=== PATIENT | male | born 1950 | race Caucasian/White ===

== ENCOUNTER 2022-04-20 17:04 | Emergency (ER) | payer MEDICARE, OTHER ==
[2022-04-20 17:30] VITALS: BP 138/72
[2022-04-20] MEDS ORDERED: LIDOCAINE 1%-EPI 1:100000 20 ML MDV SUBQ STA (18:20)
--- NOTE | 2022-04-20 18:21 | ED Physician Documentation ---
PD HPI HEAD INJURY - Stated complaint Stated Complaint: FOREHEAD LAC - Chief complaint Chief Complaint: Laceration - History obtained from History obtained from: Patient, Family - Additional information Additional information: He was walking down the stairs carrying a chair and slipped and fell. This was around 415 today. He hit his head on the concrete and has a laceration on the right forehead above the eye. There is no loss of consciousness. No headache. No other injuries. Last tetanus was 6 years ago. Review of Systems Constitutional: reports: Reviewed and negative Eyes: reports: Reviewed and negative Ears: reports: Reviewed and negative PD PAST MEDICAL HISTORY - Past Medical History Cardiovascular: High cholesterol Endocrine/Autoimmune: Type 2 diabetes Psych: Depression - Past Surgical History Past Surgical History: Yes - Present Medications Home Medications: Ambulatory Orders Medication Instructions Recorded Confirmed Adalimumab [Humira] 40 mg SUBQ 03/25/14 03/25/14 Fluoxetine HCl 40 mg PO DAILY 03/25/14 03/25/14 Simvastatin 10 mg PO DAILY 03/25/14 03/25/14 metFORMIN [Glucophage] 500 mg PO BID 03/25/14 03/25/14 Adalimumab [Humira] 09/05/15 09/05/15 - Allergies Allergies/Adverse Reactions: Allergies Allergy/AdvReac Type Severity Reaction Status Date / Time No Known Drug Allergies Allergy Verified 04/20/22 17:30 - Social History Does the pt smoke?: No Smoking Status: Never smoker Does the pt drink ETOH?: No Does the pt have substance abuse?: No - Immunizations Immunizations are current?: Yes PD ED PE NORMAL - Vitals Vital signs reviewed: Yes - General General: Alert and oriented X 3, No acute distress - HEENT HEENT: PERRL, Other (There is a 3 cm curved laceration above and into the medial right eyebrow. No facial bony tenderness. No evidence of entrapment.) - Neck Neck: Supple, no meningeal sign, No bony TTP - Neuro Neuro: Alert and oriented X 3, equipment superintendent 2-12 intact, No motor deficit, No sensory deficit, Normal speech Eye Opening: Spontaneous Motor: Obeys Commands Verbal: Oriented GCS Score: 15 Results - Vitals Vitals: Vital Signs - 24 hr 04/20/22 17:21 Temperature 36.4 C L Heart Rate 87 Respiratory 16 Rate Blood Pressure 138/72 H O2 Saturation 98 Oxygen O2 Source Room air Procedures - Laceration (location) Right forehead Length in cm: 3 Wound type: Curved, Superficial, Into subcut fat Neurovascular status: Sensory intact Anesthesia: Lidocaine 1% with epi Wound preparation: Irrigated copiously NS Skin layer closure: Prolene, Interrupted, Size #-0 - enter number (6-1), Sutures - enter # (9) Other: Tetanus UTD Departure - Departure Disposition: 01 Home, Self Care Clinical Impression: Laceration Condition: Good Record reviewed to determine appropriate education?: Yes Instructions: ED Laceration Facial Sutr Tape Comments: Come back for any signs of infection which would include: Redness, swelling, drainage, increased pain, or fevers. You can wash it soap and water. Keep it covered and moist with bacitracin ointment which is available over the counter; avoid neosporin. Follow-up with your physician in 6-7 days for suture removal.
== END 2022-04-20 18:50 | disposition home or self-care (01) ==
LOC: ED 17:04
DX: S01.81XA Laceration without foreign body of other part of head, initial encounter (principal); W10.9XXA Fall (on) (from) unspecified stairs and steps, initial encounter; E11.9 Type 2 diabetes mellitus without complications; Z79.84 Long term (current) use of oral hypoglycemic drugs
CPT/HCPCS: 12013; 99283

== ENCOUNTER 2022-04-30 14:01 | Emergency (ER) | payer MEDICARE, OTHER ==
[2022-04-30 14:15] VITALS: BP 138/73
--- NOTE | 2022-04-30 14:17 | ED Physician Documentation ---
PD HPI WOUND RECHECK - Stated complaint Stated Complaint: SUTURE REMOVAL - Chief complaint Chief Complaint: Laceration - Histroy obtained from History obtained from: Patient - History of Present Illness Location: Face (right forehead above eyebrow.) Timing - onset: How many days ago (10) Associated symptoms: No: Redness, Swelling, Drainage Recently seen: Emergency Dept (10 days ago.) Review of Systems Neurologic: denies: Focal weakness, Numbness, Altered mental status, Headache PD PAST MEDICAL HISTORY - Past Medical History Cardiovascular: High cholesterol Endocrine/Autoimmune: Type 2 diabetes Psych: Depression - Past Surgical History Past Surgical History: Yes - Present Medications Home Medications: Ambulatory Orders Medication Instructions Recorded Confirmed Adalimumab [Humira] 40 mg SUBQ 03/25/14 03/25/14 Fluoxetine HCl 40 mg PO DAILY 03/25/14 03/25/14 Simvastatin 10 mg PO DAILY 03/25/14 03/25/14 metFORMIN [Glucophage] 500 mg PO BID 03/25/14 03/25/14 Adalimumab [Humira] 09/05/15 09/05/15 - Allergies Allergies/Adverse Reactions: Allergies Allergy/AdvReac Type Severity Reaction Status Date / Time No Known Drug Allergies Allergy Verified 04/30/22 14:15 - Social History Does the pt smoke?: No Smoking Status: Never smoker Does the pt drink ETOH?: No Does the pt have substance abuse?: No - Immunizations Immunizations are current?: Yes PD ED PE NORMAL - Vitals Vital signs reviewed: Yes - General General: Alert and oriented X 3, No acute distress, Well developed/nourished - HEENT HEENT: Other (The patient has healing laceration above the right eyebrow. Minimal scabbing of the area. Wound appears well adhered otherwise. No redness or drainage.) Results - Vitals Vitals: Vital Signs - 24 hr 04/30/22 14:09 Temperature 36.2 C L Heart Rate 86 Respiratory 18 Rate Blood Pressure 138/73 H O2 Saturation 98 Oxygen O2 Source Room air PD MEDICAL DECISION MAKING - ED course Complexity details: considered differential (The sutures were removed using scalpel tip and forceps without any complications.), d/w patient Departure - Departure Disposition: 01 Home, Self Care Clinical Impression: Encounter for removal of sutures Condition: Stable Record reviewed to determine appropriate education?: Yes Instructions: ED Wound Check Sutr Remove No Infec Follow-Up: Cheng Alvarez DO [Primary Care Provider] - Comments: Your wound appears to be healing fairly well at this point. Continue with your salve twice daily to the area to keep it soft. Recheck if signs of infection develop but unlikely at this point. Discharge Date/Time: 04/30/22 14:38
== END 2022-04-30 14:38 | disposition home or self-care (01) ==
LOC: ED 14:01
DX: S01.81XD Laceration without foreign body of other part of head, subsequent encounter (principal); X58.XXXD Exposure to other specified factors, subsequent encounter; E11.9 Type 2 diabetes mellitus without complications; Z79.84 Long term (current) use of oral hypoglycemic drugs
CPT/HCPCS: 99281

== ENCOUNTER 2022-11-08 18:23 | Emergency (ER) | payer MEDICARE, OTHER ==
[2022-11-08 18:54] LABS: BASOPHILS # (AUTO) 0.1 10^3/uL (0.0-0.1); BASOPHILS % (AUTO) 0.7 %; EOSINOPHILS # (AUTO) 0.2 10^3/uL (0.0-0.7); EOSINOPHILS % (AUTO) 1.8 %; HGB - HEMOGLOBIN 13.8 g/dL (14.0-18.0); LYMPHOCYTES # (AUTO) 2.5 10^3/uL (1.5-3.5); LYMPHOCYTES % (AUTO) 26.2 %; MEAN CORPUSCULAR HEMOGLOBIN 27.3 pg (27.0-31.0); MEAN CORPUSCULAR HGB CONC 31.4 g/dL (32.0-36.0); MEAN PLATELET VOLUME 9.9 fL (7.4-11.4); MONOCYTES # (AUTO) 0.6 10^3/uL (0.0-1.0); MONOCYTES % (AUTO) 6.8 %; NEUTROPHILS # (AUTO) 6.1 10^3/uL (1.5-6.6); NEUTROPHILS % (AUTO) 64.2 %; PLT - PLATELET COUNT 231 10^3/uL (130-450); RED BLOOD COUNT 5.06 10^6/uL (4.70-6.10); RED CELL DISTRIBUTION WIDTH 13.8 % (12.0-15.0); WHITE BLOOD COUNT 9.5 x10^3/uL (4.8-10.8)
[2022-11-08 19:10] LABS: ALBUMIN 4.2 g/dL (3.2-5.5); ALBUMIN/GLOBULIN RATIO 1.3 (1.0-2.2); BILIRUBIN,TOTAL 0.6 mg/dL (0.2-1.0); POTASSIUM 4.6 mmol/L (3.5-5.0); TOTAL PROTEIN 7.5 g/dL (6.7-8.2)
[2022-11-08] MEDS ORDERED: METOPROLOL TARTRATE 50 MG TABLET PO STA (19:34)
[2022-11-08] MEDS ORDERED: ASPIRIN CHEW 81 MG TABLET PO STA (19:34)
[2022-11-08] MEDS ORDERED: METOPROLOL 5 MG/5 ML VIAL IVP STA (19:34)
--- NOTE | 2022-11-08 19:34 | XRAY Report ---
PROCEDURE: Chest 1 View X-Ray INDICATIONS: Chest Pain TECHNIQUE: One view of the chest was acquired. COMPARISON: Chest x-ray, 09/05/2019 sixth. FINDINGS: Surgical changes and devices: Thoracic spine.. Lungs and pleura: No pleural effusions or pneumothorax. Lungs are clear. Mediastinum: Mediastinal contours appear normal. Heart size is normal. Bones and chest wall: No suspicious bony lesions. Old left rib fractures noted. Overlying soft tiss ues appear unremarkable. IMPRESSION: No acute cardiopulmonary disease. Reviewed by: Broderick Miller MD on 11/08/2022 7:33 PM PDT Approved by: Broderick Miller MD on 11/08/2022 7:33 PM PDT Station ID: [id number]
[2022-11-08] MEDS ORDERED: ENOXAPARIN 100 MG/ML SYRINGE SUBQ STA (19:35)
[2022-11-08] MEDS ORDERED: ATORVASTATIN 40 MG TABLET PO STA (19:35)
--- NOTE | 2022-11-08 19:36 | ED Physician Documentation ---
PD HPI CHEST PAIN - Stated complaint Stated Complaint: HEART ISSUES - Chief complaint Chief Complaint: Cardiac - History obtained from History obtained from: Patient - Additional information Additional information: 72-year-old gentleman with history of rheumatoid arthritis and type 2 diabetes has had exertional dyspnea for quite some time. He states that whenever he walks fast for about 50 feet he will develop substernal chest pain radiating to the right arm. Will last approximately 5 minutes and then go away. Yesterday he had a much longer episode of exertional chest pain lasting about 30 to 45 minutes. He is pain-free today. He does not get short of breath with it. He has no known history of heart problems. PD PAST MEDICAL HISTORY - Past Medical History Cardiovascular: High cholesterol Endocrine/Autoimmune: Type 2 diabetes Psych: Depression - Past Surgical History Past Surgical History: Yes - Present Medications Home Medications: Ambulatory Orders Medication Instructions Recorded Confirmed Adalimumab [Humira] 40 mg SUBQ 03/25/14 03/25/14 Fluoxetine HCl 40 mg PO DAILY 03/25/14 03/25/14 Simvastatin 10 mg PO DAILY 03/25/14 03/25/14 metFORMIN [Glucophage] 500 mg PO BID 03/25/14 03/25/14 Adalimumab [Humira] 09/05/15 09/05/15 - Allergies Allergies/Adverse Reactions: Allergies Allergy/AdvReac Type Severity Reaction Status Date / Time No Known Drug Allergies Allergy Verified 11/08/22 18:31 - Social History Does the pt smoke?: No Smoking Status: Never smoker Does the pt drink ETOH?: No Does the pt have substance abuse?: No - Immunizations Immunizations are current?: Yes PD ED PE NORMAL - Vitals Vital signs reviewed: Yes - General General: Alert and oriented X 3, No acute distress - HEENT HEENT: PERRL, EOMI - Neck Neck: Supple, no meningeal sign, No bony TTP - Cardiac Cardiac: RRR, No murmur - Respiratory Respiratory: No respiratory distress, Clear bilaterally - Abdomen Abdomen: Non tender - Back Back: No CVA TTP, No spinal TTP - Derm Derm: Normal color, Warm and dry - Neuro Neuro: Alert and oriented X 3, Normal speech Results - Vitals Vitals: Vital Signs - 24 hr 11/08/22 11/08/22 18:28 20:33 Temperature 36.5 C Heart Rate 99 74 Respiratory 16 22 Rate Blood Pressure 145/74 H 144/82 H O2 Saturation 100 98 Oxygen O2 Source Room air - EKG (time done) 1833 EKG releavant findings:: EKG personally interpreted by author of this note. Relevant findings are: Rate: Rate (enter#) (91) Rhythm: NSR, LAE QRS: LVH Ischemia: Normal ST segments Computer interpretation: Agree with computer - Labs Labs: Laboratory Tests 11/08/22 11/08/22 11/08/22 18:49 18:49 18:49 WBC 9.5 RBC 5.06 Hgb 13.8 L Hct 44.0 MCV 87.0 MCH 27.3 MCHC 31.4 L RDW 13.8 Plt Count 231 MPV 9.9 Neut # (Auto) 6.1 Lymph # (Auto) 2.5 Mclennan # (Auto) 0.6 Eos # (Auto) 0.2 Baso # (Auto) 0.1 Absolute Nucleated RBC 0.00 Nucleated RBC % 0.0 Sodium 141 Potassium 4.6 Chloride 101 Carbon Dioxide 27 Anion Gap 13.0 BUN 29 H Creatinine 1.0 Estimated GFR (MDRD) 73 L Glucose 199 H Calcium 10.0 Total Bilirubin 0.6 AST 21 ALT 23 Alkaline Phosphatase 64 Troponin I High Sens 487.0 H* B-Natriuretic Peptide Total Protein 7.5 Albumin 4.2 Globulin 3.3 Albumin/Globulin Ratio 1.3 Lipase 34 SARS-CoV-2 (PCR) 11/08/22 11/08/22 11/08/22 18:49 20:32 20:53 WBC RBC Hgb Hct MCV MCH MCHC RDW Plt Count MPV Neut # (Auto) Lymph # (Auto) Mclennan # (Auto) Eos # (Auto) Baso # (Auto) Absolute Nucleated RBC Nucleated RBC % Sodium Potassium Chloride Carbon Dioxide Anion Gap BUN Creatinine Estimated GFR (MDRD) Glucose Calcium Total Bilirubin AST ALT Alkaline Phosphatase Troponin I High Sens 510.1 H* B-Natriuretic Peptide 93 Total Protein Albumin Globulin Albumin/Globulin Ratio Lipase SARS-CoV-2 (PCR) NOT DETECTED PD Medical Decision Making - ED course ED course: 72-year-old gentleman who has had exertional angina for some time, yesterday with a much longer episode concerning for unstable angina, and he has positive biomarkers suggestive of probably minor non-STEMI yesterday.. He was administered Lovenox, aspirin, beta-blockade, And atorvastatin. [facility] was called for possible transfer, they were full, but put him on a waiting list. We also called [facility], He is on a waiting list there as well. He is pain-free and we expect him to board in the emergency department for some time pending transfer. Care to the overnight emergency department physician pending hopeful rapid placement. Departure - Departure Disposition: 02 Transfer Acute Care Hosp Clinical Impression: NSTEMI (non-ST elevated myocardial infarction) Condition: Serious
[2022-11-08] MEDS ORDERED: ACETAMINOPHEN 500 MG TABLET PO PRN (20:20)
[2022-11-08] MEDS ORDERED: ONDANSETRON 4 MG/2 ML VIAL IVP PRN (20:20)
[2022-11-08] MEDS ORDERED: ATORVASTATIN 40 MG TABLET PO SCH (21:00)
[2022-11-08] MEDS: ENOXAPARIN 100 MG/ML SYRINGE SUBQ SCH (22:03)
[2022-11-08] MEDS: METOPROLOL TARTRATE 25 MG TABLET PO SCH (22:03)
[2022-11-09 05:30] LABS: BASOPHILS # (AUTO) 0.1 10^3/uL (0.0-0.1); BASOPHILS % (AUTO) 0.7 %; EOSINOPHILS # (AUTO) 0.2 10^3/uL (0.0-0.7); EOSINOPHILS % (AUTO) 3.2 %; HCT - HEMATOCRIT 40.2 % (42.0-52.0); HGB - HEMOGLOBIN 12.8 g/dL (14.0-18.0); LYMPHOCYTES # (AUTO) 2.3 10^3/uL (1.5-3.5); LYMPHOCYTES % (AUTO) 32.7 %; MEAN CORPUSCULAR HEMOGLOBIN 27.6 pg (27.0-31.0); MEAN CORPUSCULAR HGB CONC 31.8 g/dL (32.0-36.0); MEAN CORPUSCULAR VOLUME 86.8 fL (80.0-94.0); MEAN PLATELET VOLUME 10.2 fL (7.4-11.4); MONOCYTES # (AUTO) 0.5 10^3/uL (0.0-1.0); MONOCYTES % (AUTO) 7.5 %; NEUTROPHILS % (AUTO) 55.6 %; PLT - PLATELET COUNT 197 10^3/uL (130-450); RED BLOOD COUNT 4.63 10^6/uL (4.70-6.10); RED CELL DISTRIBUTION WIDTH 13.9 % (12.0-15.0); WHITE BLOOD COUNT 7.2 x10^3/uL (4.8-10.8)
[2022-11-09 05:38] LABS: CALCIUM 8.9 mg/dL (8.5-10.3); POTASSIUM 4.1 mmol/L (3.5-5.0)
[2022-11-09] MEDS ORDERED: PANTOPRAZOLE 40 MG TABLET PO SCH (07:00)
[2022-11-09] MEDS: FLUoxetine 10 MG CAPSULE PO SCH ×2 (08:07→09:06)
[2022-11-09] MEDS: metFORMIN 500 MG TABLET PO SCH ×2 (08:07→09:06)
--- NOTE | 2022-11-09 08:33 | ED Physician Documentation ---
ED Addendum - Addendum Addendum: 11/09/22 08:30 I talked with the patient. He is sitting up in a chair reading a book about equipment for more water to, and particularly the [employer] tank. He is feeling comfortable. He understands the tightness of hospital capacity and waiting for transfer. He asks about the option of going home and I explained to them the concern with the marked elevation of troponin that he has already heart attack/damage and if this is represented by unstable angina, he is at risk of a significantly larger heart attack presuming he has a high percent main vessel stenosis. He asked about his daily usual medicines for depression and diabetes. I ordered those. He does get biweekly Humira which we do not have on formulary. He will have his bring it in and he can take his own dosing. I would not see a reason not to 4 the current diagnosis. He has not had any chest pain overnight. He states he has not been having pain at rest. He is advised to notify us if he does have any rest pain. Hopefully later this morning with other hospitals discharging we may be able to transfer him today.
[2022-11-09] MEDS: METOPROLOL TARTRATE 25 MG TABLET PO SCH (08:57)
[2022-11-09] MEDS: ENOXAPARIN 100 MG/ML SYRINGE SUBQ SCH (08:58)
[2022-11-09] MEDS ORDERED: ASPIRIN CHEW 81 MG TABLET PO SCH (09:00)
[2022-11-09 14:46] VITALS: BP 116/84
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
== END 2022-11-09 14:46 | disposition left against medical advice (07) ==
LOC: ED 18:23
DX: I21.4 Non-ST elevation (NSTEMI) myocardial infarction (principal); I20.0 Unstable angina; F32.A Depression, unspecified; E11.9 Type 2 diabetes mellitus without complications; Z76.4 Other boarder to healthcare facility; Z75.1 Person awaiting admission to adequate facility elsewhere; Z79.84 Long term (current) use of oral hypoglycemic drugs; Z79.899 Other long term (current) drug therapy; Z20.822 Contact with and (suspected) exposure to COVID-19
CPT/HCPCS: 36415; 71045; 80048; 80053; 83690; 83880; 84484; 85025; 87635; 93005; 96372; 96374; 99284; A9270; J1650

== ENCOUNTER 2022-11-09 16:28 | Emergency (ER) | payer MEDICARE, OTHER ==
--- NOTE | 2022-11-09 16:35 | ED Physician Documentation ---
PD HPI CHEST PAIN - Stated complaint Stated Complaint: CHEST PX - History obtained from History obtained from: Patient - History of Present Illness Timing - onset: How many weeks ago (has had increasing exertional chest pain, worse and longer persisting recently.), Other (Refer to ER chart from 11/08/2022 for larger explanation.) Timing - onset during: Light activity (just walking to mailbox.) Timing - duration: Minutes Timing - details: Intermittant, Other (He denies any chest pain while out of the department the past hour.) Quality: Pressure, Tightness, Aching Location: Substernal, Left chest Worsened by: Exertion. No: Inspiration, Eating, Movement Associated symptoms: Shortness of air, Feeling faint / dizzy. No: Cough Recently seen: Emergency Dept (He presented to the ER yesterday with the symptoms and by labs found to have a very elevated troponin with diagnosis of non-STEMI and presumed unstable angina. He was on the waiting list for transfer to other facilities. He had to leave the department for an hour or so to go ho me and help his disa) Review of Systems Constitutional: denies: Fever Nose: denies: Rhinorrhea / runny nose, Congestion Throat: denies: Sore throat Respiratory: denies: Cough GI: denies: Abdominal Pain, Vomiting, Diarrhea, Bloody / black stool Musculoskeletal: denies: Extremity swelling Neurologic: denies: Near syncope PD PAST MEDICAL HISTORY - Past Medical History Cardiovascular: High cholesterol Respiratory: None Endocrine/Autoimmune: Type 2 diabetes Psych: Depression - Past Surgical History Past Surgical History: Yes - Present Medications Home Medications: Ambulatory Orders Medication Instructions Recorded Confirmed Adalimumab [Humira] 40 mg SUBQ 03/25/14 03/25/14 Fluoxetine HCl 40 mg PO DAILY 03/25/14 11/09/22 metFORMIN [Glucophage] 500 mg PO BID 03/25/14 11/09/22 Clopidogrel [Plavix] 75 mg PO DAILY #10 tablet 11/09/22 Glipizide [Glipizide ER] 5 mg PO DAILY 11/09/22 11/09/22 Metoprolol Succinate [Toprol Xl] 50 mg PO BID #20 tablet 11/09/22 Nitroglycerin [Nitrostat] 0.4 mg SL Q5MIN PRN #25 tablet 11/09/22 - Allergies Allergies/Adverse Reactions: Allergies Allergy/AdvReac Type Severity Reaction Status Date / Time No Known Drug Allergies Allergy Verified 11/09/22 16:37 - Social History Does the pt smoke?: No Smoking Status: Never smoker Does the pt drink ETOH?: No Does the pt have substance abuse?: No - Immunizations Immunizations are current?: Yes - POLST Patient has POLST: No PD ED PE NORMAL - Vitals Vital signs reviewed: Yes - General General: Alert and oriented X 3, No acute distress, Well developed/nourished - Neck Neck: Supple, no meningeal sign, No adenopathy - Cardiac Cardiac: RRR, No murmur - Respiratory Respiratory: Clear bilaterally, Other (no chestwall tenderness) - Abdomen Abdomen: Soft, Non tender - Derm Derm: Normal color, Warm and dry - Extremities Extremities: No edema, No calf tenderness / cord - Neuro Neuro: Alert and oriented X 3, No motor deficit, Normal speech Results - Vitals Vitals: Vital Signs - 24 hr 11/09/22 11/09/22 16:32 16:36 Temperature 36.1 C L 36.5 C Heart Rate 71 71 Respiratory 16 16 Rate Blood Pressure 125/68 125/68 O2 Saturation 97 97 Oxygen O2 Source Room air - EKG (time done) 16:39 EKG releavant findings:: EKG personally interpreted by author of this note. Relevant findings are: Rate: Rate (enter#) (68) Rhythm: NSR Earle: Normal Intervals: Normal MA QRS: Normal Ischemia: Normal ST segments, Other (T wave flattening inferolateral. ). No: ST elevation c/w ischemia, ST depression Compare to prior EKG: Unchanged from prior EKG - Labs Labs: Laboratory Tests 11/09/22 11/09/22 11/09/22 16:40 16:40 17:08 Sodium 137 Potassium 4.3 Chloride 105 Carbon Dioxide 24 Anion Gap 8.0 BUN 29 H Creatinine 1.6 H Estimated GFR (MDRD) 43 L Glucose 212 H Calcium 9.0 Magnesium 1.9 Troponin I High Sens 238.9 H* B-Natriuretic Peptide 112 H PD Medical Decision Making - ED course Complexity details: reviewed old records, considered differential (The patient has been here in the ER the last day with diagnosis of unstable angina and non- STEMI with elevated troponin to 500s. His has disability and he needed to go home and do some errands and arrange some matters for her. He signed out AMA earlier and is back now as he said he would.), d/w patient Reviewed Lab Results: His troponin upon return is in the 200s. This is decreased from the recent 400s showing a troughing from his peak in the 500s. No apparent recurrent injury at this time. ED course: The patient with diagnosis of non-STEMI and unstable angina with concern for potential significant coronary artery stenosis based on his symptoms. He had he felt important things to do at home to help his disabled get settled as he was not expecting to be 6 days away from home. He was able to arrange things so his is okay and returns for resumption of care as he was getting. The patient does indeed want the appropriate care. His signing out and returning I think was actually fairly valiant to help his and would not take it as a uncooperative gesture. Departure - Departure Disposition: 02 Transfer Acute Care Hosp Clinical Impression: Unstable angina, NSTEMI (non-ST elevated myocardial infarction) Condition: Stable
[2022-11-09 17:18] LABS: CREATININE 1.6 mg/dL (0.6-1.2); MAGNESIUM 1.9 mg/dL (1.7-2.8); POTASSIUM 4.3 mmol/L (3.5-5.0)
[2022-11-09] MEDS: ENOXAPARIN 80 MG/0.8 ML SYRINGE SUBQ SCH (21:04)
[2022-11-09] MEDS: METOPROLOL SUCCINATE 25 MG TABLET PO SCH (21:04)
[2022-11-09] MEDS: metFORMIN 500 MG TABLET PO SCH (21:04)
[2022-11-10] MEDS: ENOXAPARIN 80 MG/0.8 ML SYRINGE SUBQ SCH (08:52)
[2022-11-10] MEDS: metFORMIN 500 MG TABLET PO SCH (08:53)
[2022-11-10] MEDS: METOPROLOL SUCCINATE 25 MG TABLET PO SCH (08:54)
[2022-11-10] MEDS ORDERED: ATORVASTATIN 40 MG TABLET PO SCH (09:00)
[2022-11-10] MEDS ORDERED: FLUoxetine 10 MG CAPSULE PO SCH (09:00)
[2022-11-10] MEDS ORDERED: ASPIRIN EC 81 MG TABLET PO SCH (09:00)
[2022-11-10] MEDS ORDERED: PANTOPRAZOLE 40 MG TABLET PO SCH (09:00)
--- NOTE | 2022-11-10 09:07 | ED Physician Documentation ---
ED Addendum - Addendum Addendum: 11/10/22 09:06 Patient is comfortable awake and pleasant this morning. No chest pain episodes overnight or this morning. He remains on the basic home medications plus the heart targeted medications. He is still on the list for transfers to a facility with cardiology. [facility] said they might have spaces later this morning. Still pending.
[2022-11-10 09:53] VITALS: BP 124/83
--- NOTE | 2022-11-10 10:09 | ED Physician Documentation ---
ED Addendum - Addendum Addendum: 11/10/22 10:08 [facility] states they are able to accept the patient. They are anticipating discharges and beds available and their plan is to have the patient brought there by EMS with planned cardiac catheterization at [address] Fabian wallis. They will work on bed placement after that as needed. The patient is agreeable and understanding of the plan. He had a very light breakfast around 830. He will be maintained n.p.o. Disposition: Transfer to acute care facility in stable condition Diagnoses: 1. Unstable angina 2. Elevated troponin/non-STEMI
== END 2022-11-10 10:30 | disposition short-term general hospital (02) ==
LOC: ED 16:28
DX: I20.0 Unstable angina (principal); I21.4 Non-ST elevation (NSTEMI) myocardial infarction
CPT/HCPCS: 36415; 80048; 83735; 83880; 84484; 93005; 99283; 99285; A9270; J1650

== ENCOUNTER 2022-11-10 10:19 | Outpatient (CLI) | payer MEDICARE, OTHER | END 2022-11-10 23:59 | disposition short-term general hospital (02) | LOC: EMS 10:19 | PROVIDERS: ATTEND Emergency Medicine | DX: I21.4 Non-ST elevation (NSTEMI) myocardial infarction (principal) | CPT/HCPCS: A0425; A0426 ==

== ENCOUNTER 2023-11-11 16:40 | Emergency (ER) | payer MEDICARE, OTHER ==
[2023-11-11 16:58] VITALS: O2SAT 98
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
[2023-11-11] MEDS: HYDROcod/ACETAM 5/325 MG TABLET PO STA (17:33)
--- NOTE | 2023-11-11 17:54 | CT Report ---
PROCEDURE: Lumbar Spine WO INDICATIONS: back inj TECHNIQUE: Noncontrast 3 mm thick sections acquired from the T12 level to the sacrum. Sagittal and coronal refo rmats were constructed. For radiation dose reduction, the following was used: automated exposure co ntrol, adjustment of mA and/or kV according to patient size. COMPARISON: Correlation is made with CT abdomen and pelvis, 03/26/2014. FINDINGS: Image quality: There is artifact associated with the metallic hardware. Bones: There is a subacute-appearing T12 compression deformity seen, with 50% loss of height central ly. There is 2 mm posterior displacement of fracture fragments. This fracture is new compared to 2014 . There is normal bony alignment. No No suspicious lytic or blastic bony lesions. Central spinal jorge edgardo is of normal overall caliber. No pars defects. T12-L1: Normal in appearance. L1-L2: Normal in appearance. L2-L3: The disc height is well-preserved. Mild to moderate disc bulge is seen, which is eccentric to the left. There is minimal left-sided and no right-sided neuroforaminal narrowing. No central carli l narrowing is seen. L3-L4: Mild loss of disc height is seen. Moderate disc bulge is seen at this level. Mild to mode rate facet hypertrophy can be seen. There is mild to moderate left-sided and no right-sided neurofora alexander narrowing. Mild central canal narrowing is seen. L4-L5: The disc height is well-preserved. Mild disc bulge is seen. Moderate facet hypertrophy is seen. Moderate bilateral neuroforaminal narrowing can be seen, left worse than right. Mild central c anal narrowing is seen. L5-S1: At least moderate loss of disc height is seen. Bridging endplate osteophytes can be seen at this level. Mild to moderate facet hypertrophy can be seen. There is moderate left-sided and no right -sided neuroforaminal narrowing. No central canal narrowing is seen. There are 2 screws seen through the sacrum from the right. Left proximal femur hardware can be seen. Soft tissues: No retroperitoneal masses or hematomas. Visualized aorta is normal in caliber. Ather osclerotic calcification is seen. Diverticulosis can be seen, without sriram findings of active divert iculitis. IMPRESSION: Subacute appearing T12 fracture, with 50% loss of height centrally and 2 mm posterior displacement of fracture fragments. Lumbar spine degenerative changes are seen, which are worst inferiorly. Additional findings: Diverticulosis, without findings of active diverticulitis. 2 sacral screws Left proximal femur hardware Reviewed by: Neftali Burt MD on 11/11/2023 4:53 PM AKDT Approved by: Neftali Burt MD on 11/11/2023 4:53 PM AKGEORGES Station ID: [id number]
[2023-11-11 18:47] VITALS: BP 131/79
== END 2023-11-11 18:39 | disposition home or self-care (01) ==
LOC: ED 16:40
DX: S22.080A Wedge compression fracture of T11-T12 vertebra, initial encounter for closed fracture (principal); W19.XXXA Unspecified fall, initial encounter; Y93.89 Activity, other specified
CPT/HCPCS: 72131; 99284; A9270